=== PATIENT | female | born 1990 | race Caucasian/White ===

== ENCOUNTER → 2017-04-02 | Outpatient (CLI) | payer BC | END | disposition home or self-care (01) | LOC: RADECHMAIN 11:50 | PROVIDERS: ATTEND Family Medicine | DX: R55 Syncope and collapse (principal) | CPT/HCPCS: 93270; 93271 ==

== ENCOUNTER 2017-06-11 06:17 | Day surgery (SDC) | payer BC ==
[2017-06-06 15:26] VITALS: BMI 23.1
[2017-06-11] MEDS ORDERED: SODIUM CHLORIDE 0.9% 500 ML IV ONE (06:50)
[2017-06-11 06:56] VITALS: TEMP 98
[2017-06-11] MEDS ORDERED: MIDAZOLAM 2 MG/2 ML VIAL ONE (07:05)
[2017-06-11] MEDS ORDERED: fentaNYL (PF) 50 MCG/ML 2 ML AMP ONE (07:05)
[2017-06-11] MEDS ORDERED: BENZOCAINE SPRAY 100 APPLIC/CAN MUCOUS MEM ONE (07:22)
[2017-06-11] MEDS: fentaNYL (PF) 50 MCG/ML 2 ML AMP IV ONE ×2 (07:40→07:50)
[2017-06-11] MEDS ORDERED: MIDAZOLAM 2 MG/2 ML VIAL IV ONE (07:45)
[2017-06-11 08:21] VITALS: RESP 16
[2017-06-11 08:22] VITALS: BP 111/74
[2017-06-11 08:43] VITALS: PULSE 60
--- NOTE | 2017-06-11 12:36 | ECHOT ---
DATE OF SERVICE: 06/11/2017 PROCEDURE PERFORMED: TRANSESOPHAGEAL ECHOCARDIOGRAM PERFORMING PHYSICIAN: AUGUSTINE WAKEFIELD MD, OBSTETRICIAN/GYNECOLOGIST INDICATION: This is a pleasant, 26-year-old female patient who underwent transthoracic echocardiogram by Dr. Garcia and that showed possible bicuspid aortic valve and the patient was referred for further cardiac evaluation. Transesophageal echocardiogram is better clarification. COMPLICATION: None. LEVEL OF SEDATION: Moderate with a sedation length of about 15 minutes. PROCEDURE DESCRIPTION: ( ) FINDINGS: The left ventricular dimension and systolic function appeared to be within normal limits. The ejection fraction seems to be in the range of 55% to 60% with a normal wall motion. The right ventricle is of normal size and function as well. The left atrium and right atrium are within normal limits. The left atrial appendage appeared to be free from any thrombus. The intra-atrial septum appears to be intact. The aortic valve is a trileaflet valve without stenosis with mild regurgitation. The mitral valve seem to be normal with trace MR. Normal tricuspid valve and pulmonic valve. CONCLUSION: 1. Normal left ventricular dimension and systolic function. 2. Overall normal cardiac chamber sizes. 3. Intact intra-atrial septum without any evidence of shunt. 4. Normal left atrial appendage without any thrombus. 5. Trileaflet aortic valve without stenosis with mild insufficiency. 6. Normal mitral valve with trace physiologic MR. 7. Normal tricuspid valve and pulmonic valve. 8. No evidence of pericardial effusion. MTDD
== END 2017-06-11 08:53 | disposition home or self-care (01) ==
LOC: CATHCVL 06:17
PROVIDERS: ATTEND Internal Medicine Interventional Cardiology
DX: I08.0 Rheumatic disorders of both mitral and aortic valves (principal); R55 Syncope and collapse; F17.210 Nicotine dependence, cigarettes, uncomplicated; Z82.49 Family history of ischemic heart disease and other diseases of the circulatory system; Z79.899 Other long term (current) drug therapy
CPT/HCPCS: 93312; 93320; 93325; 81025; J2250; J3010

== ENCOUNTER 2019-09-01 07:35 | Day surgery (SDC) | payer BC ==
[2019-08-30 15:03] VITALS: BMI 21.6
[~2019-09-01 07:35] MED LIST: DEXAMETHASONE SOD PHOSPHATE 10 MG/ML 1 ML VIAL IV ONE; DEXAMETHASONE SOD PHOSPHATE 4 MG/ML 1 ML VIAL IV ONE; FAMOTIDINE 20 MG/2 ML VIAL IV ONE; LACTATED RINGERS 1,000 ML IV SCH; LIDOCAINE 1% 20 ML VIAL (10MG/ML) FOR IV START INTRADERMA PRN; MIDAZOLAM 2 MG/2 ML VIAL IV PRN; ONDANSETRON 4 MG/2 ML VIAL IVP ONE; SCOPOLAMINE 1.5MG/72HR PATCH TRANSDERM ONE
[2019-09-01] MEDS: OXYMETAZOLINE 0.05% NASL SPRAY 1 SPRAY BOTTLE NASAL ONE ×5 (08:02→08:27)
[2019-09-01] MEDS ORDERED: fentaNYL (PF) 50 MCG/ML 2 ML AMP ONE (08:31)
[2019-09-01] MEDS ORDERED: MIDAZOLAM 2 MG/2 ML VIAL ONE (08:31)
[2019-09-01] MEDS ORDERED: SUCCINYLCHOLINE CHLORIDE 100 MG/5 ML SYR IV ONE (08:31)
[2019-09-01] MEDS ORDERED: GLYCOPYRROLATE 0.2 MG/ML 2 ML VIAL ONE (08:31)
[2019-09-01] MEDS ORDERED: PROPOFOL 10 MG/ML 20 ML VIAL IV ONE (08:31)
[2019-09-01] MEDS ORDERED: ePHEDrine SULFATE/0.9% NACL/PF 50 MG/5 ML SYRINGE IV ONE (08:31)
[2019-09-01] MEDS ORDERED: DEXAMETHASONE SOD PHOS (MDV) 100 MG/10 ML VIAL ONE (08:31)
[2019-09-01] MEDS ORDERED: LIDOCAINE 1% INJ 10MG/ML (20 ML MDV) ONE (08:31)
[2019-09-01] MEDS ORDERED: LIDOCAINE 1%-EPI 1:100,000 20 ML VIAL SQ ONE (08:47)
[2019-09-01] MEDS ORDERED: BACITRACIN 500 UNIT/GM OINT 28.4 GM TUBE TOPICAL ONE ×2 (08:53→09:15)
[2019-09-01] MEDS ORDERED: LACTATED RINGERS 1,000 ML IV ONE (09:22)
--- NOTE | 2019-09-01 09:28 | P.OP ---
Date of Procedure: 09/01/19 Preoperative Diagnosis: Deviated nasal septum Inferior turbinate hypertrophy Postoperative Diagnosis: Same Procedure(s) Performed: Septoplasty Outfractured and submucous resection of the inferior turbinates Anesthesia: SANDRAA Surgeon: Gutierrez Moreno Estimated Blood Loss (ml): 5 Pathology: other (Nasal septal bone and cartilage) Condition: stable Disposition: PACU Indications for Procedure: This 28-year-old white female whose had difficulties with chronic nasal airway obstruction especially on the right with notable deviated septum and inferior turbinate hypertrophy noted in the office which has not improved with medical management Operative Findings: Nasal septum deviated to the right obstructing approximately 90% nasal airway in both the bony and cartilaginous septum. Inferior turbinate hypertrophy bilateral Description of Procedure: DESCRIPTION OF PROCEDURE: The patient was brought to the operative suite, placed in the supine position. The patient underwent induction of general anesthesia with oral endotracheal intubation without difficulty. The patient was prepped and draped in the usual aseptic fashion. 1% lidocaine with 1:100,000 epinephrine was infused submucosally on both sides of the nasal septum. While this was taking vasoconstrictive effect, the inferior turbinates were infractured with a Cheatham elevator. Partial submucous resection of the inferior turbinates was performed with Coblation device ablating a portion of the submucosal soft tissue. The inferior turbinates were then outfractured with a Cheatham elevator. A left hemitransfixion incision was then made through the mucoperichondrial. Mucoperiosteal flap on the left elevated. Bony cartilaginous junction was disarticulated and mucoperiosteal flap on the right was elevated. Bony nasoseptal deformity were removed with Elayne forceps and an inferior cartilaginous strip was removed, leaving a full 1.5 cm caudal strut. Checking intranasally, this corrected the nasal septal deformities and the hemitransfixion incision was closed with running 4-0 chromic suture. The bilateral Rodriguez airway splints coated in bacitracin ointment were placed in the nasal cavities and sutured transseptally with 4-0 nylon suture. The patient was then suctioned in an orogastric fashion. The patient was allowed to emerge from general anesthesia, having tolerated the procedure well and was extubated in the operating suite, transferred to postoperative recovery area in satisfactory condition.
[2019-09-01 09:49] VITALS: TEMP 97.8
[2019-09-01] MEDS: HYDROmorphone 0.5 MG/0.5 ML SYRINGE IVP PRN ×2 (09:52→10:02)
[2019-09-01 09:54] VITALS: RESP 16
[2019-09-01 10:43] VITALS: BP 116/76; PULSE 76
== END 2019-09-01 11:30 | disposition home or self-care (01) ==
LOC: OR 07:35
PROVIDERS: ATTEND Otolaryngology
DX: J34.2 Deviated nasal septum (principal); J34.3 Hypertrophy of nasal turbinates; F41.9 Anxiety disorder, unspecified; F32.9 Major depressive disorder, single episode, unspecified; K08.89 Other specified disorders of teeth and supporting structures; F17.210 Nicotine dependence, cigarettes, uncomplicated; Z98.51 Tubal ligation status; Z79.899 Other long term (current) drug therapy; Z91.048 Other nonmedicinal substance allergy status; Z81.8 Family history of other mental and behavioral disorders
CPT/HCPCS: 30520; 30140; 81025; 88300; J2250; J1100 ×2; J2405; J0690; J2001; J3010; J0330; J2704; J1170